=== PATIENT | male | born 1985 | race Caucasian/White ===

== ENCOUNTER 2020-05-26 12:49 | Emergency (ER) | payer MEDICAID ==
[~2020-05-26] VITALS: Ht 172.7 cm; Wt 70.7 kg
[2020-05-26 12:55] VITALS: BP 136/63
--- NOTE | 2020-05-26 13:30 | NUR ---
PT SITTING ON GURNEY AWAKE & COMFORTABLE WATCHING TV, RESPONDS APPROP TO STAFF, NAD, NO NEEDS AT THIS TIME, CALL LIGHT WITHIN REACH, XR DONE AT BS.
== END 2020-05-26 15:18 | disposition home or self-care (01) ==
LOC: ED 14:26
DX: S60.031A Contusion of right middle finger without damage to nail, initial encounter (principal); Y04.0XXA Assault by unarmed brawl or fight, initial encounter; Y93.89 Activity, other specified; Y92.488 Other paved roadways as the place of occurrence of the external cause; Y99.8 Other external cause status
CPT/HCPCS: 29130; 99283